=== PATIENT | female | born 1950 | race Two or more races ===

== ENCOUNTER 2020-06-06 13:03 | Inpatient (IN) | payer OTHER, MEDICAID ==
[~2020-06-06] VITALS: Ht 160 cm; Wt 72.5 kg
[2020-06-06] MEDS ORDERED: SODIUM CHLORIDE 0.9% 500 ML IVB ONE (13:30)
[2020-06-06 14:39] LABS: Basophils # (auto) 0 10 ^3/uL (0-0.2); Basophils % (auto) 0.6 % (0.0-2.0); Eosinophils # (auto) 0.1 10 ^3/uL (0-0.8); Eosinophils % (auto) 2.2 % (0.0-7.0); Hematocrit 39.9 % (36.0-46.0); Hemoglobin 13.2 g/dL (12.2-16.2); Lymphocytes # (auto) 0.9 10 ^3/uL (0.4-5.4); Lymphocytes % (auto) 20.7 % (10.0-50.0); Mean Corpuscular Hemoglobin 31.2 pg (28.0-32.0); Mean Corpuscular Hgb Conc. 33.1 g/dL (32.0-36.0); Monocytes # (auto) 0.3 10 ^3/uL (0-1.3); Neutrophils % (auto) 69.5 % (37.0-80.0); Nucleated Red Blood Cells % 0.1 %; Platelet Count (auto) 147 10^3/uL (140-450); Red Blood Cells 4.25 10^6/uL (4.0-5.20); White Blood Cell 4.4 10^3/uL (4.4-10.8)
[2020-06-06 15:03] LABS: Alanine Aminotransferase 21 U/L (13-56); Albumin 3.3 g/dL (3.4-5.0); Anion Gap 6 (5-15); Aspartate Aminotransferase 11 U/L (15-37); BUN/Creatinine Ratio 13.9; Blood Urea Nitrogen 16 mg/dL (7-18); Calcium 9.6 mg/dL (8.5-10.1); Carbon Dioxide 24 mmol/L (21-32); Chloride 109 mmol/L (98-107); GFR African American 60 mL/min; GFR Non-African American 50 mL/min; Glucose 86 mg/dL (74-106); Magnesium 2.3 mg/dL (1.6-2.6); Potassium 3.9 mmol/L (3.5-5.1); Sodium 139 mmol/L (136-145)
[2020-06-06 15:08] LABS: Alkaline Phosphatase 56 U/L (45-117); Bilirubin, Total 0.6 mg/dL (0.2-1.0); Total Protein 7.1 g/dL (6.4-8.2)
[2020-06-06 15:20] LABS: Urine Bacteria NONE SEEN /hpf (None Seen); Urine Blood Negative /uL (Negative); Urine Hyaline Cast FEW /lpf (0 - 2); Urine Mucus FEW (None Seen); Urine Specific Gravity 1.025 (1.001-1.035); Urine WBC 1 /hpf (0 - 5)
[2020-06-06 15:28] LABS: Alcohol, Urine < 3.0 mg/dL (0-10); Amphetamine Screen, Urine NEGATIVE (NEGATIVE); Barbiturate Scree,Urine NEGATIVE (NEGATIVE); Benzodiazephine Screen, Urine NEGATIVE (NEGATIVE); Cannabinoid Screen, Urine NEGATIVE (NEGATIVE); Cocaine Screen, Urine NEGATIVE (NEGATIVE); Opiate Scree,Urine NEGATIVE (NEGATIVE); Phencyclidine Screen, Urine NEGATIVE (NEGATIVE)
[2020-06-06] MEDS ORDERED: DEXTROSE (50%) 50ML SYRG IV ONE (16:15)
[2020-06-06] MEDS ORDERED: SODIUM CHLORIDE 0.9% 1,000 ML IV ONE (19:00)
[2020-06-06] MEDS ORDERED: ACETAMINOPHEN 500 MG TAB PO PRN (19:30)
[2020-06-06] MEDS ORDERED: TEMAZEPAM 15 MG CAP PO PRN (19:30)
[2020-06-06] MEDS ORDERED: traMADol HCL 50 MG TAB PO PRN (19:30)
[2020-06-06] MEDS ORDERED: MORPHINE SULF INJ 2 MG/ML SYRINGE 1ML IV PRN (19:30)
[2020-06-06] MEDS ORDERED: LACTULOSE 20Gm/30ML SOLN PO PRN (19:30)
[2020-06-06] MEDS ORDERED: ONDANSETRON HCL 4 MG/2 ML VIAL IV PRN (19:30)
[2020-06-06] MEDS ORDERED: NITROGLYCERIN 0.4 MG SL TAB SL PRN (19:30)
[2020-06-06] MEDS: SODIUM CHLORIDE 0.9% 1,000 ML IV SCH (20:30)
[2020-06-06 21:26] LABS: CRP High Sensitivity 0.06 mg/dL (< 0.3)
[2020-06-06] MEDS: FAMOTIDINE 20 MG TAB PO SCH (22:04)
[2020-06-06] MEDS: LABETALOL HCL 5 MG/ML ML 20ML VIAL IV PRN (23:25)
[2020-06-06] MEDS ORDERED: LORazepam 2MG/ML-1ML VIAL IV PRN (23:30)
[2020-06-06 23:54] LABS: Cholesterol 148 mg/dL (< 200); HDL Cholesterol 62 mg/dL (40-59); LDL Cholesterol 77 mg/dL (< 100); Triglycerides 106 mg/dL (< 150)
[2020-06-07] MEDS: LABETALOL HCL 5 MG/ML ML 20ML VIAL IV PRN (01:30)
[2020-06-07 04:50] VITALS: BP 152/88
--- NOTE | 2020-06-07 04:50 | NUR ---
Unable to Complete Admission Assessment This RN is resource nurse jose and is unable to complete admission assessment at this time due to patient being alert and oriented to self. Information obtained was from medical record. Will attempt to call daughter later today.
--- NOTE | 2020-06-07 05:54 | NUR ---
PATIENTS CONDITION NOTED BY THE ADMITTING RESOURCE RN. PATIENT RESPONDS TO VERBAL STIMULI AND LIGHT PAIN. SPEECH IS INCOMPREHENSIBLE. HER SKIN IS INTACT. SHE IS AFEBRILE. ABDOMEN APPEARS DISTENDED AND FIRM BUT THERE ARE BOWEL SOUNDS. THE FAMILY IS EXPECTED TO CALL BACK FOR MORE INFORMATION.
--- NOTE | 2020-06-07 06:30 | NUR ---
Spoke with Daughter Called and spoke with Daughter Yany. Yany was able to assist in answering some of the admission questions.
[2020-06-07] MEDS ORDERED: SUMA25TA2 PO (06:33)
[2020-06-07] MEDS ORDERED: SIMV10TA84 PO (06:33)
--- NOTE | 2020-06-07 06:49 | NUR ---
PATIENT WAS COVID19 NEGATIVE AND REVERTS TO UNIVERSAL ISOLATION.
--- NOTE | 2020-06-07 06:50 | NUR ---
Home Medications Collected Home medications collected and sent to pharmacy. Copy in hardchart. POM wristband on patient.
[2020-06-07] MEDS: SODIUM CHLORIDE 0.9% 1,000 ML IV SCH ×2 (08:30→20:23)
[2020-06-07 09:00] VITALS: BP 156/91
[2020-06-07] MEDS ORDERED: CHOLECALCIFEROL (VITD3) 1,000UNIT=25mCg TAB PO SCH (10:00)
[2020-06-07] MEDS ORDERED: ZINC SULFATE 220mg CAP or TAB PO SCH (10:00)
[2020-06-07] MEDS ORDERED: ASCORBIC ACID 1,000 MG TAB PO SCH (10:00)
[2020-06-07] MEDS: FAMOTIDINE 20 MG TAB PO SCH ×2 (10:51→21:33)
[2020-06-07] MEDS: ENOXAPARIN SOD 40 MG/0.4 ML SYRINGE SC SCH (10:52)
[2020-06-07] MEDS: ASPirin 81 mg TAB PO SCH (10:52)
[2020-06-07 13:00] VITALS: BP 143/78
--- NOTE | 2020-06-07 13:35 | NUR ---
SWALLOW EVALUATED. PATIENT ALOC BUT ABLE TO FOLLOW DIRECTIONS. PATIENT HAS NATURAL TEETH. ABLE TO TOLERATE PUREE DIET TEXTURE WITH THIN LIQUIDS WITH NO OVERT SIGNS OR SYMPTOMS OF ASPIRATION. PATIENT HAD DIFFICULTY WITH SMALL TRIAL OF MECH SOFT. NURSING NOTIFIED.
--- NOTE | 2020-06-07 15:52 | NUR ---
PT VERY TIRED AND DOES NOT ANSWER QUESTIONS OR RESPOND TO COMMANDS. ATTEMPT P.T. TOMORROW.
--- NOTE | 2020-06-07 16:50 | NUR ---
EEG- Electroencephalogram completed on 06/07/2020.
[2020-06-07 17:30] VITALS: BP 140/72
--- NOTE | 2020-06-07 18:43 | NUR ---
CONSENT CONSENT SIGNED VIA TELEPHONE CONSENT WITH PATIENTS DAUGHTER AMY MCKEON. CARMELO Maciel AND CARMELO Caba WITNESS.
[2020-06-07] MEDS ORDERED: IOHEXOL 350 MG/ML 100ML IJ ONE (18:57)
--- NOTE | 2020-06-07 19:00 | NUR ---
Patient taken down to radiology.
--- NOTE | 2020-06-07 19:40 | NUR ---
Opening Shift Note Assumed care of patient, eyes open to voice. Patient able to follow simple commands. No S/S of distress/SOB. Fall, aspiration, and safety precautions in place. Call light within reach. Ignacio in place draining to gravity with no obstructions/kinks and bag is hung below waist. Instructed on POC and to call for assist PRN, patient unable to verbalize understanding, will continue reinforcement. Will continue to monitor for changes Q1hr and PRN.
--- NOTE | 2020-06-07 19:43 | NUR ---
RETURN TO UNIT PATIENT RETURNS TO UNIT VIA BED SAFELY WITH NO ACUTE S/S OF DISTRESS/HARM. WILL CONTINUE TO MONITOR.
[2020-06-07] MEDS: ATORVASTATIN 20 MG TAB PO SCH (21:33)
[2020-06-07 22:00] VITALS: BP 146/89
[2020-06-08 05:00] VITALS: BP 120/73
--- NOTE | 2020-06-08 05:10 | NUR ---
O2 SATURATION O2 RECHECKED AT THIS TIME. PATIENT'S SATURATION IS 96% ON ROOM AIR. WILL CONTINUE TO MONITOR.
[2020-06-08 08:41] VITALS: BP 128/74
[2020-06-08] MEDS: FAMOTIDINE 20 MG TAB PO SCH ×3 (10:00→21:02)
[2020-06-08] MEDS: ASPirin 81 mg TAB PO SCH ×2 (10:00→10:12)
[2020-06-08] MEDS: ENOXAPARIN SOD 40 MG/0.4 ML SYRINGE SC SCH (10:11)
[2020-06-08] MEDS: SODIUM CHLORIDE 0.9% 1,000 ML IV SCH ×2 (10:13→21:23)
--- NOTE | 2020-06-08 11:10 | NUR ---
DOCTOR ALMANZA ON PHONE WITH PATIENTS FAMILY DISCUSSING POC.
[2020-06-08] MEDS ORDERED: ACETAMINOPHEN 650 mg PER 20 mL UD PO PRN (11:15)
[2020-06-08 12:46] VITALS: BP 138/76
--- NOTE | 2020-06-08 14:15 | NUR ---
PT at bedside ambulating patient.
[2020-06-08 17:09] VITALS: BP 137/76
--- NOTE | 2020-06-08 17:27 | NUR ---
PATIENTS DAUGHTER AMY SIGNED CONSENTS FOR TRANSESOPHAGEAL ECHOCARDIOGRAM DOWN IN FRONT LOBBY.
[2020-06-08] MEDS: ATORVASTATIN 20 MG TAB PO SCH (21:02)
[2020-06-08 22:00] VITALS: BP 122/62
[2020-06-09 05:00] VITALS: BP 131/66
--- NOTE | 2020-06-09 07:40 | NUR ---
Opening Note Received report from maintenance technician 3rd shift RN. Patient is resting in bed, no signs or symptoms of distress noted at this time. Patient is on room air, respirations even and unlabored. Patient is NPO for scheduled procedure. Bed in low and locked position, call light within reach. Will continue to monitor Q1 hour and PRN.
[2020-06-09 07:56] LABS: INR 1.04 (0.9-1.15); Partial Thromboplastin Time 26.8 sec (23.64-32.05)
[2020-06-09 09:00] VITALS: BP 141/67
[2020-06-09] MEDS: ASPirin 81 mg TAB PO SCH (10:00)
[2020-06-09] MEDS: ENOXAPARIN SOD 40 MG/0.4 ML SYRINGE SC SCH (10:00)
[2020-06-09] MEDS: FAMOTIDINE 20 MG TAB PO SCH ×2 (10:00→22:30)
--- NOTE | 2020-06-09 11:10 | NUR ---
Physical therapy at bedside patient ambulated to hallway and and back to bed.
[2020-06-09] MEDS: SODIUM CHLORIDE 0.9% 1,000 ML IV SCH ×2 (11:21→22:31)
--- NOTE | 2020-06-09 11:36 | NUR ---
Patient taken down to laboratory analyst
[2020-06-09] MEDS ORDERED: LIDOCAINE VISCOUS 2% 15ML UD MT ONE (11:45)
[2020-06-09] MEDS ORDERED: MIDAZOLAM HCL 1MG/1ML-2 ML VIAL IV ONE (11:45)
[2020-06-09] MEDS ORDERED: fentaNYL CITRATE 100 MCG/2 ML VL IV ONE (11:45)
[2020-06-09 13:00] VITALS: BP 148/76
--- NOTE | 2020-06-09 13:35 | NUR ---
Patient back to room Patient is s/p FEDE. Per report, no interventions were done and patient did not receive sedation medications. Patient is awake, no signs or symptoms of distress noted at this time. Patient is on 2L NC respirations even and unlabored. Bed alarm on for safety. Bed in low and locked position, call light within reach. Will continue to monitor Q1 hour and PRN.
--- NOTE | 2020-06-09 15:31 | NUR ---
assessment Patient is a 69 year old female. Per patients daughter Yany prior to admission patient lived home with her and family and was independent. Patient has no need for DME. Patients PCP is Dr Whaley. Per Yany patient was not responding to her so she called 911. Patient has had a stroke. Patient will need assistance on discharge. Per Yany she and other family members will be with patient 13/06 to help with all her needs. Patient will need home health for PT, a fww, and a shower chair prior to discharge. Per Yany she will be transporting patient home on discharge. I will continue to monitor and follow up as appropriate. Yany verbalized understanding and ageed to discharge plan home. Addendum: 06/09/20 at 1535 by Emily FULTON Amended: Links added.
--- NOTE | 2020-06-09 16:53 | NUR ---
I faxed home health, walker, shower chair order to [facility].
[2020-06-09 16:54] VITALS: BP 135/78
--- NOTE | 2020-06-09 19:05 | NUR ---
Closing Note Report given to security shift supervisor RN. No signs or symptoms of distress noted at this time.
--- NOTE | 2020-06-09 19:06 | NUR ---
Opening Shift Note Assumed care of patient, awake and alert. No S/S of distress/SOB or pain. Instructed on POC and to call for assist PRN, will continue to monitor for changes Q1hr and PRN.
[2020-06-09 22:00] VITALS: BP 143/73
[2020-06-09] MEDS: ATORVASTATIN 20 MG TAB PO SCH (22:30)
[2020-06-10 05:00] VITALS: BP 116/69
--- NOTE | 2020-06-10 07:25 | NUR ---
Opening Note Received report from operations leader RN. Patient is resting in bed, no signs or symptoms of distress noted at this time. Patient is on room air, respirations even and unlabored. Bed in low and locked position, call light within reach. Will continue to monitor Q1 hour and PRN.
[2020-06-10 08:47] VITALS: BP 127/75
--- NOTE | 2020-06-10 08:55 | NUR ---
Dr. Mcclendon at bedside Discussing plan of care with patient and this RN. Patient to discharge home later today. Will continue to monitor Q1 hour and PRN.
[2020-06-10] MEDS: FAMOTIDINE 20 MG TAB PO SCH (10:20)
[2020-06-10] MEDS: ASPirin 81 mg TAB PO SCH (10:20)
[2020-06-10] MEDS: ENOXAPARIN SOD 40 MG/0.4 ML SYRINGE SC SCH (10:21)
[2020-06-10 10:48] VITALS: BP 145/83
[2020-06-10 12:45] VITALS: BP 130/78
--- NOTE | 2020-06-10 14:47 | NUR ---
D/C Planning Regarding social service consult for physical therapy, Occupational therapy, and speech therapy. Fax[facility] clinical [facility]. Per NAOMI Henley with [facility], [facility] ) can service patient within 24-48hrs upon d/c day.
[2020-06-10 16:53] VITALS: BP 121/78
--- NOTE | 2020-06-10 17:46 | NUR ---
Discharge Discharge instructions given as ordered to patients daughter Leanne. Encourage to follow up with PMD as instructed. All questions and concerns addressed. Family verbalized understanding. Medication reconciliation form completed and copy given to patient. Home medications held in Pharmacy returned to patient. IV removed with catheter intact, pressure dressing applied, Ignacio catheter removed. Telemetry unit returned to ICU. Patient taken to vehicle via wheelchair with all personal belongings, accompanied by staff members. No signs or symptoms of distress noted at this time.
== END 2020-06-10 17:45 | disposition home or self-care (01) | DRG 64 ==
LOC: ER 13:03 → TELE 13:04 → TELE-WESTW 06-07 04:50
PROVIDERS: ADMIT Internal Medicine; ATTEND Internal Medicine Geriatric Medicine
PROC: B246ZZ4 Ultrasonography of Right and Left Heart, Transesophageal (ICD-10-PCS; principal; 2020-06-09)
DX: I63.9 Cerebral infarction, unspecified (principal); G93.41 Metabolic encephalopathy; Q21.1 Atrial septal defect; E78.5 Hyperlipidemia, unspecified; R47.01 Aphasia; F17.210 Nicotine dependence, cigarettes, uncomplicated; F41.9 Anxiety disorder, unspecified; Z20.828 Contact with and (suspected) exposure to other viral communicable diseases; G43.109 Migraine with aura, not intractable, without status migrainosus; I10 Essential (primary) hypertension; Z86.73 Personal history of transient ischemic attack (TIA), and cerebral infarction without residual deficits; Z79.82 Long term (current) use of aspirin; Z79.899 Other long term (current) drug therapy; Z82.3 Family history of stroke; Z82.49 Family history of ischemic heart disease and other diseases of the circulatory system; Z83.3 Family history of diabetes mellitus
CPT/HCPCS: 36415; 70450; 70496; 70498; 70551; 71045; 80053; 80061; 80307; 80320; 81001; 82550; 82728; 82962; 83605; 83615; 83735; 84443; 84484; 85025; 85379; 85610; 85652; 85730; 86141; 86850; 86900; 86901; 87040; 92610; 93005; 93306; 93312; 93886; 95819; 97110; 97116; 97163; 97530; 99152; G0378; J2250

== ENCOUNTER 2020-06-24 15:20 | Inpatient (IN) | payer OTHER, MEDICAID ==
[~2020-06-24] VITALS: Ht 165.1 cm; Wt 72.0 kg
[~2020-06-24 15:20] MED LIST: SIMV10TA84 PO; SUMA25TA2 PO
[2020-06-24] MEDS ORDERED: SODIUM CHLORIDE 0.9% 500 ML IVB ONE (15:54)
[2020-06-24] MEDS ORDERED: PANTOPRAZOLE 40 MG/10 ML VIAL INJ IV STA (15:54)
[2020-06-24] MEDS ORDERED: MORPHINE SULFATE 4 MG/ML SYR/VIAL IV ONE ×2 (16:00→21:15)
[2020-06-24] MEDS ORDERED: ONDANSETRON HCL 4 MG/2 ML VIAL IV ONE (16:00)
[2020-06-24 16:23] LABS: Basophils # (auto) 0 10 ^3/uL (0-0.2); Basophils % (auto) 0.3 % (0.0-2.0); Eosinophils # (auto) 0 10 ^3/uL (0-0.8); Eosinophils % (auto) 0.2 % (0.0-7.0); Hematocrit 40.7 % (36.0-46.0); Hemoglobin 13.6 g/dL (12.2-16.2); Lymphocytes # (auto) 0.7 10 ^3/uL (0.4-5.4); Lymphocytes % (auto) 12.3 % (10.0-50.0); Mean Corpuscular Hemoglobin 30.7 pg (28.0-32.0); Mean Corpuscular Hgb Conc. 33.4 g/dL (32.0-36.0); Mean Corpuscular Volume 91.9 fL (80.0-100.0); Monocytes # (auto) 0.4 10 ^3/uL (0-1.3); Monocytes % (auto) 6.4 % (0.0-12.0); Neutrophils # (auto) 4.6 10 ^3/uL (1.6-8.6); Neutrophils % (auto) 80.8 % (37.0-80.0); Platelet Count (auto) 211 10^3/uL (140-450); Red Blood Cells 4.43 10^6/uL (4.0-5.20); Red Cell Distribution Width 12.7 % (11.8-14.3); White Blood Cell 5.7 10^3/uL (4.4-10.8)
[2020-06-24 16:46] LABS: Albumin 3.4 g/dL (3.4-5.0); Calcium 10.3 mg/dL (8.5-10.1); Potassium 3.7 mmol/L (3.5-5.1)
[2020-06-24 16:48] LABS: BUN/Creatinine Ratio 14.3
[2020-06-24 16:50] LABS: Total Protein 7.6 g/dL (6.4-8.2)
[2020-06-24] MEDS ORDERED: MORPHINE SULF INJ 2 MG/ML SYRINGE 1ML IV PRN (21:30)
[2020-06-24] MEDS ORDERED: ONDANSETRON HCL 4 MG/2 ML VIAL IV PRN (21:30)
[2020-06-24] MEDS ORDERED: NITROGLYCERIN 0.4 MG SL TAB SL PRN (21:30)
[2020-06-25] MEDS: hydrALAZINE HCL 20 MG/ML VL IV SCH ×3 (00:24→12:00)
[2020-06-25 01:45] VITALS: BP 148/72
[2020-06-25] MEDS ORDERED: MORPHINE SULFATE 4 MG/ML SYR/VIAL IV PRN (02:00)
[2020-06-25] MEDS ORDERED: ASPI-543 PO (02:28)
[2020-06-25] MEDS ORDERED: TRAM50TA2 PO (02:28)
[2020-06-25] MEDS ORDERED: LOSA-69 PO (02:28)
[2020-06-25] MEDS ORDERED: ATOR20TA50 PO (02:28)
[2020-06-25] MEDS ORDERED: CHOL1000 PO (02:30)
[2020-06-25] MEDS ORDERED: HYDR25TA4 PO (02:30)
[2020-06-25] MEDS ORDERED: ESCI10TA53 PO (02:30)
--- NOTE | 2020-06-25 04:46 | NUR ---
0130 Telemetry admit from ER. FELTONLATISHA admitted to Telemetry unit after SBAR received. Patient oriented to DEBBIE TALLEY, RN primary RN, unit, room, bed, and unit policies regarding patient care and how there are currently visiting hours. Patient now on continuous telemetry monitoring, tele box #78 and telemetry reading on arrival to unit is NSR at 86. Patient placed on bedside oxygen, weighed by bedscale at and encouraged to call if they need something. All questions and concerns addressed, patient confirmed understanding. Will continue to monitor patient hourly.
[2020-06-25 05:00] VITALS: BP 150/90
[2020-06-25 06:03] LABS: Basophils # (auto) 0 10 ^3/uL (0-0.2); Basophils % (auto) 0.3 % (0.0-2.0); Eosinophils # (auto) 0 10 ^3/uL (0-0.8); Eosinophils % (auto) 0.1 % (0.0-7.0); Hematocrit 41.5 % (36.0-46.0); Hemoglobin 13.6 g/dL (12.2-16.2); Lymphocytes # (auto) 0.4 10 ^3/uL (0.4-5.4); Mean Corpuscular Hemoglobin 30.9 pg (28.0-32.0); Mean Corpuscular Hgb Conc. 32.8 g/dL (32.0-36.0); Mean Corpuscular Volume 94.1 fL (80.0-100.0); Monocytes # (auto) 0.2 10 ^3/uL (0-1.3); Monocytes % (auto) 7.5 % (0.0-12.0); Neutrophils # (auto) 2.6 10 ^3/uL (1.6-8.6); Neutrophils % (auto) 80.1 % (37.0-80.0); Platelet Count (auto) 180 10^3/uL (140-450); Red Blood Cells 4.41 10^6/uL (4.0-5.20); White Blood Cell 3.3 10^3/uL (4.4-10.8)
[2020-06-25] MEDS: SODIUM CHLORIDE 0.9% 1,000 ML IV SCH ×2 (06:05→21:39)
[2020-06-25 06:19] LABS: Calcium 9.9 mg/dL (8.5-10.1)
[2020-06-25 06:22] LABS: BUN/Creatinine Ratio 14.8
--- NOTE | 2020-06-25 08:00 | NUR ---
Opening Shift Note Assumed care of patient, awake, alert and oriented X4. No S/S of distress/SOB, complains of abdominal pain, 3/10, verbalized tolerable. Left nare NGT to LIS with 100 ml of greenish, brown drainage. Tele# 78, sinus tachycardia @ 113 bpm. IV to left forearm, 20 gauge, patent and infusing 0.9% NS @ 75 ml/hr. Instructed on POC and to call for assist PRN, verbalized understanding. Bed locked, in lowest position, call light within reach, will continue to monitor for changes Q1hr and PRN.
[2020-06-25 09:00] VITALS: BP 91/49
--- NOTE | 2020-06-25 09:05 | NUR ---
SBFT Patient taken to radiology for SBFT via bed, no distress noted upon departure.
[2020-06-25] MEDS ORDERED: GASTROGRAFIN 120 ML SOL ONE (09:10)
--- NOTE | 2020-06-25 10:30 | NUR ---
SBFT Returned from radiology via bed, no distress noted upon return.
[2020-06-25] MEDS: PANTOPRAZOLE 40 MG/10 ML VIAL INJ IV SCH (10:44)
[2020-06-25 13:00] VITALS: BP 119/54
--- NOTE | 2020-06-25 13:10 | NUR ---
OBGYN Dr Reilly at bedside for INTERNET MARKETER consult, new orders received and followed through. Patient updated on plan of care, verbalized understanding.
--- NOTE | 2020-06-25 13:24 | NUR ---
ONCOLOGY Dr Martinez at bedside for Oncology consult. New orders received and followed through. Patient updated on plan of care, verbalize understanding.
--- NOTE | 2020-06-25 13:59 | NUR ---
ROUNDS Dr Mcclendon at bedside for rounds, new orders received and followed thorough. Patient updated on plan of care, verbalized understanding.
--- NOTE | 2020-06-25 14:42 | NUR ---
I faxed transfer order and today's MD progress notes to [facility].
--- NOTE | 2020-06-25 14:59 | NUR ---
I called [facility] and spoke with Leslie ([phone]) regarding the transfer to higher level of care order-she said Kim is working on the transfer and will call me later with an update.
--- NOTE | 2020-06-25 15:30 | NUR ---
SBFT Small Bowel Follow Through completed. Left nare NGT hooked back up to LIS.
--- NOTE | 2020-06-25 16:29 | NUR ---
I spoke with nurse Chely and updated her on the status of the transfer-[facility] phone number [phone].
[2020-06-25 17:00] VITALS: BP 111/62
--- NOTE | 2020-06-25 19:08 | NUR ---
Care endorsed to CARMELO Verma, night nurse.
--- NOTE | 2020-06-25 20:00 | NUR ---
Opening Shift Note Assumed care of patient, awake, alert and oriented X4, follows direction. Patient on room air with even and unlabored respirations, No S/S of distress/SOB. Patient turns independently in bed. Left nare NGT to LIS with 100 ml of greenish, brown drainage. Bed in lowest locked position with side rails up x 2 and call light within reach. Instructed on POC and to call for assist PRN, verbalized understanding. Bed locked, in lowest position, call light within reach, will continue to monitor for changes Q1hr and PRN.
[2020-06-25 22:00] VITALS: BP 142/75
[2020-06-26 05:00] VITALS: BP 127/67
--- NOTE | 2020-06-26 07:05 | NUR ---
Closing Note status unchanged. patient sleeping in bed, on room air with even and unlabored respirations, noted chest rise and fall. no s/s of distress or SOB. IVF infusing per orders. NGT to LIS, 50mL brown drainage output for shift. Bed in lowest locked position with side rails up x 2 and call light within reach, bed alarm on.
[2020-06-26 07:15] LABS: Basophils # (auto) 0 10 ^3/uL (0-0.2); Basophils % (auto) 0.6 % (0.0-2.0); Eosinophils # (auto) 0 10 ^3/uL (0-0.8); Eosinophils % (auto) 1.3 % (0.0-7.0); Hematocrit 34.7 % (36.0-46.0); Hemoglobin 11.6 g/dL (12.2-16.2); Lymphocytes # (auto) 0.7 10 ^3/uL (0.4-5.4); Lymphocytes % (auto) 18.8 % (10.0-50.0); Mean Corpuscular Hemoglobin 31.3 pg (28.0-32.0); Mean Corpuscular Hgb Conc. 33.4 g/dL (32.0-36.0); Mean Corpuscular Volume 93.5 fL (80.0-100.0); Monocytes # (auto) 0.3 10 ^3/uL (0-1.3); Monocytes % (auto) 9.7 % (0.0-12.0); Neutrophils # (auto) 2.5 10 ^3/uL (1.6-8.6); Neutrophils % (auto) 69.6 % (37.0-80.0); Nucleated Red Blood Cells % 0.1 %; Platelet Count (auto) 165 10^3/uL (140-450); Red Blood Cells 3.72 10^6/uL (4.0-5.20); Red Cell Distribution Width 13.1 % (11.8-14.3); White Blood Cell 3.5 10^3/uL (4.4-10.8)
[2020-06-26 07:32] LABS: BUN/Creatinine Ratio 21.9; Calcium 9.6 mg/dL (8.5-10.1); Magnesium 2.4 mg/dL (1.6-2.6); Potassium 3.3 mmol/L (3.5-5.1)
--- NOTE | 2020-06-26 08:00 | NUR ---
Opening Shift Note Assumed care of patient, awake, alert and oriented X4. No S/S of distress/SOB, complains of anterior headache, 8/, will medicate with prescribed pain medication. Left nare NGT to LIS with 150 ml of brown drainage. Tele# 78, sinus rhythm @ 81 bpm. IV to left forearm, 20 gauge, patent and infusing 0.9% NS @ 75 ml/hr. Instructed on POC and to call for assist PRN, verbalized understanding. Bed locked, in lowest position, call light within reach, will continue to monitor for changes Q1hr and PRN.
[2020-06-26 09:00] VITALS: BP 144/93
[2020-06-26] MEDS ORDERED: POTASSIUM CHL 20MEQ/100ML 100 ML IV ONE (09:45)
--- NOTE | 2020-06-26 09:45 | NUR ---
ROUNDS Dr Mcclendon at bedside for rounds, new orders received and followed through. Patient updated on plan of care, nodded head in understanding.
--- NOTE | 2020-06-26 10:15 | NUR ---
IV removal IV DC'd to left forerm due to swelling with sterile technique, catheter fully intact. Pressure dressing applied to site. Patient tolerated procedure well. Discharged with aftercare instructions per MD. IV insertion IV access obtained to right forerm, via clean sterile technique by inserting 22 gauge catheter at right forearm after 1 attempt.IV secured properly. No trauma to site. Patient tolerated procedure well.
--- NOTE | 2020-06-26 10:34 | NUR ---
I called [facility] [phone] and spoke with Merchandising Specialist Kim-asked for an update on the status of the transfer. Per Kim he medical biller coder told her to reach out to their contracted facility-[facility]-she is reaching out to them and will call me back regarding bed availability. Per Kim, her medical biller coder is not authorizing [place] or [facility] at this time.
[2020-06-26] MEDS: KETOROLAC TROMETH 30 MG/ML 1ML VIAL IV PRN (11:30)
--- NOTE | 2020-06-26 11:40 | NUR ---
ROUNDS Dr Mcclendon at bedside for rounds, new orders received and followed through. Patient updated on plan of care, verbalized understanding.
[2020-06-26] MEDS: SODIUM CHLORIDE 0.9% 1,000 ML IV SCH (11:45)
[2020-06-26] MEDS: PANTOPRAZOLE 40 MG/10 ML VIAL INJ IV SCH (11:51)
[2020-06-26 13:00] VITALS: BP 138/76
--- NOTE | 2020-06-26 14:50 | NUR ---
I received a call from [facility] Manager Support Kim-she said [facility] has no beds available. Per Kim she is reaching out to [facility]-she will give me a call back later with an update.
--- NOTE | 2020-06-26 15:16 | NUR ---
[facility] Call received from Shama from [facility]. Requested information provided. Per Shama, they require a negative COVID test result within 5 days of transfer. Per Shama, they do not have a bed at this time. Call placed to Dr Mcclendon for COVID order, awaiting return call.
--- NOTE | 2020-06-26 17:00 | NUR ---
COVID SAMPLE Covid sample obtained and sent to lab.
[2020-06-26 18:04] VITALS: BP 128/70
--- NOTE | 2020-06-26 19:17 | NUR ---
Care endorsed to CARMELO Merrill, night nurse.
--- NOTE | 2020-06-26 19:50 | NUR ---
Opening Shift Note Assumed care of patient, awake, AAOx4. No S/S of distress/SOB or pain. On room air and bedrest. NGT to left nare on LIS. Patient NPO. Bed in lowest locked position, side rails up x2, call light within reach. Instructed on POC and to call for assist PRN, will continue to monitor for changes Q1hr and PRN.
[2020-06-26] MEDS: D5W/SOD CHL 0.45%/KCL 20MEQ 1,000 ML IV SCH (21:00)
[2020-06-26 22:00] VITALS: BP 133/76
[2020-06-27 05:00] VITALS: BP 155/91
[2020-06-27 05:53] VITALS: BP 155/91
[2020-06-27 06:23] LABS: Basophils # (auto) 0 10 ^3/uL (0-0.2); Basophils % (auto) 0.5 % (0.0-2.0); Eosinophils # (auto) 0.1 10 ^3/uL (0-0.8); Eosinophils % (auto) 2.1 % (0.0-7.0); Hematocrit 36.9 % (36.0-46.0); Lymphocytes # (auto) 0.9 10 ^3/uL (0.4-5.4); Mean Corpuscular Hemoglobin 31.1 pg (28.0-32.0); Mean Corpuscular Hgb Conc. 32.5 g/dL (32.0-36.0); Mean Corpuscular Volume 95.6 fL (80.0-100.0); Monocytes # (auto) 0.4 10 ^3/uL (0-1.3); Monocytes % (auto) 9.8 % (0.0-12.0); Neutrophils # (auto) 2.6 10 ^3/uL (1.6-8.6); Neutrophils % (auto) 64.6 % (37.0-80.0); Nucleated Red Blood Cells % 0.3 %; Platelet Count (auto) 153 10^3/uL (140-450); Red Blood Cells 3.86 10^6/uL (4.0-5.20); Red Cell Distribution Width 13.2 % (11.8-14.3); White Blood Cell 4.1 10^3/uL (4.4-10.8)
[2020-06-27 06:31] LABS: BUN/Creatinine Ratio 23.6; Calcium 9.4 mg/dL (8.5-10.1); Magnesium 2.5 mg/dL (1.6-2.6); Potassium 3.3 mmol/L (3.5-5.1)
[2020-06-27 09:00] VITALS: BP 129/70
[2020-06-27] MEDS: PANTOPRAZOLE 40 MG/10 ML VIAL INJ IV SCH (10:07)
[2020-06-27] MEDS: D5W/SOD CHL 0.45%/KCL 20MEQ 1,000 ML IV SCH (10:08)
--- NOTE | 2020-06-27 10:14 | NUR ---
1015 06/27/20 I spoke with [facility] Seymour Alvarez and requested an update on the status of the transfer to higher level of care. Per Kim she will check bed availability at [facility] and give me a call back. I requested that authorization be provided for patient's admission and continued stay. Per Kim, inpatient authorization is approved with number [id number].
[2020-06-27] MEDS ORDERED: POTASSIUM CHL 20MEQ/100ML 100 ML IV ONE (12:00)
[2020-06-27] MEDS: KETOROLAC TROMETH 30 MG/ML 1ML VIAL IV PRN (12:56)
[2020-06-27 13:00] VITALS: BP 151/71
--- NOTE | 2020-06-27 16:01 | NUR ---
Patient will be going to [facility] [address] room 4 bed 2, nurse to call report to [phone]. I spoke with Meena at [facility] ([phone])regarding transportation-she will arrange [facility] to come at 1999-I relayed this information to nurse Marie.
--- NOTE | 2020-06-27 16:10 | NUR ---
Accepting MD at [facility] is Dr. Hinson.
--- NOTE | 2020-06-27 16:25 | NUR ---
REPORT GIVEN TO RAY MOSELEY.
[2020-06-27 17:16] VITALS: BP 141/77
--- NOTE | 2020-06-27 19:10 | NUR ---
CARE ENDORSED TO LUPE FLORENTINO. PATIENT TO BE TRANSFERRED TO [facility] MARINE UNDERWRITER 1999. ENDORSED TELE BOX REMOVAL TO NOC CARMELO FLORENTINO.
--- NOTE | 2020-06-27 20:24 | NUR ---
2019PATIENT HAS BEEN DISCHARGED. SHE WAS PICKED UP BY EMR TO [facility] AT 2020. HER TELEMETRY WAS DCD AND TELE BOX AND LEAD WIRES RETURNED TO ICU VIA TUBE SYSTEM. HER NGT WAS LEFT IN SITU. HER IV WAS DISCONTINUED. SHE WAS ALERT AND ORIENTED AND COMFORTABLE BEFORE HER TRIP COMMENCED.
--- NOTE | 2020-06-27 20:28 | NUR ---
HER VITAL SIGNS WERE: BP 146/69, HR 54, O2 SAT 96% ON RA, TEMP. 97.4, RR 18.
== END 2020-06-27 20:21 | disposition short-term general hospital (02) | DRG 389 ==
LOC: ER 15:20 → TELE 15:21 → TELE-WESTW 23:32
PROVIDERS: ADMIT Nurse Practitioner; ATTEND Internal Medicine Geriatric Medicine
DX: K56.600 Partial intestinal obstruction, unspecified as to cause (principal); I69.354 Hemiplegia and hemiparesis following cerebral infarction affecting left non-dominant side; N83.9 Noninflammatory disorder of ovary, fallopian tube and broad ligament, unspecified; D49.59 Neoplasm of unspecified behavior of other genitourinary organ; I10 Essential (primary) hypertension; E78.5 Hyperlipidemia, unspecified; G43.909 Migraine, unspecified, not intractable, without status migrainosus; K40.20 Bilateral inguinal hernia, without obstruction or gangrene, not specified as recurrent; E27.8 Other specified disorders of adrenal gland; K80.20 Calculus of gallbladder without cholecystitis without obstruction; Z87.891 Personal history of nicotine dependence; Z90.710 Acquired absence of both cervix and uterus; Z82.49 Family history of ischemic heart disease and other diseases of the circulatory system; I69.320 Aphasia following cerebral infarction; I69.322 Dysarthria following cerebral infarction; Z11.59 Encounter for screening for other viral diseases; R19.00 Intra-abdominal and pelvic swelling, mass and lump, unspecified site
CPT/HCPCS: 36415; 71045; 74176; 74250; 76705; 80048; 80053; 83690; 83735; 85025; 86304; 93005; 96361; 96374; 96375; 96376; C9113; G0378; J1885; J2405; J3480

== ENCOUNTER → 2023-06-08 | Outpatient (CLI) | payer MEDICARE, MEDICAID ==
[~2023-06-08] MED LIST changes: +ASPI-543 PO; +ATOR20TA50 PO; +CHOL1TAB30 PO; +ESCI1TAB36 PO; +HYDR25TA4 PO; +LOSA50TA46 PO; -SIMV10TA84 PO; +TRAM50TA2 PO
== END | disposition home or self-care (01) ==
LOC: LAB 07:12
PROVIDERS: ATTEND Family Medicine
DX: Z12.11 Encounter for screening for malignant neoplasm of colon (principal)
CPT/HCPCS: 82270

== ENCOUNTER → 2023-10-24 | Outpatient (CLI) | payer OTHER, MEDICAID ==
[2023-10-24 11:44] LABS: Basophils # (auto) 0 10 ^3/uL (0-0.2); Basophils % (auto) 0.5 % (0.0-2.0); Eosinophils # (auto) 0.2 10 ^3/uL (0-0.8); Eosinophils % (auto) 4.8 % (0.0-7.0); Hematocrit 40.2 % (36.0-46.0); Hemoglobin 13.2 g/dL (12.2-16.2); Lymphocytes # (auto) 1.1 10 ^3/uL (0.4-5.4); Lymphocytes % (auto) 29.3 % (10.0-50.0); Mean Corpuscular Hemoglobin 29.6 pg (28.0-32.0); Mean Corpuscular Hgb Conc. 32.8 g/dL (32.0-36.0); Mean Corpuscular Volume 90.2 fL (80.0-100.0); Monocytes # (auto) 0.3 10 ^3/uL (0-1.3); Monocytes % (auto) 7.8 % (0.0-12.0); Neutrophils # (auto) 2.2 10 ^3/uL (1.6-8.6); Neutrophils % (auto) 57.6 % (37.0-80.0); Nucleated Red Blood Cells % 0.2 %; Red Blood Cells 4.46 10^6/uL (4.0-5.20); Red Cell Distribution Width 13.8 % (11.8-14.3); White Blood Cell 3.8 10^3/uL (4.4-10.8)
[2023-10-24 11:53] LABS: Urine Bacteria NONE SEEN /hpf (None Seen); Urine Blood Negative /uL (Negative); Urine Clarity Clear (Clear); Urine Color Yellow (Yellow); Urine Mucus FEW (None Seen); Urine Protein, UAD Negative (Negative); Urine Specific Gravity 1.018 (1.001-1.035); Urine Urobilinogen Normal (Negative); Urine WBC <1 /hpf (0 - 5)
[2023-10-24 12:03] LABS: Alanine Aminotransferase 15 U/L (7-40); Alkaline Phosphatase 88 U/L (46-116); Anion Gap 6 (5-15); Calcium 10.8 mg/dL (8.5-10.1); Carbon Dioxide 26 mmol/L (20-30); Chloride 108 mmol/L (98-107); Potassium 4.1 mmol/L (3.5-5.1); Sodium 140 mmol/L (136-145)
[2023-10-24 12:04] LABS: BUN/Creatinine Ratio 11.9 (10.0-20.0); Blood Urea Nitrogen 10 mg/dL (9-23); Glucose 95 mg/dL (74-106); Triglycerides 131 mg/dL (< 150)
[2023-10-24 12:05] LABS: Albumin 4.2 g/dL (3.2-4.8); Aspartate Aminotransferase 18 U/L (13-40); LDL Cholesterol 133 mg/dL (< 100)
[2023-10-24 12:06] LABS: Bilirubin, Total 0.8 mg/dL (0.2-1.0); Cholesterol 202 mg/dL (< 200); HDL Cholesterol 55 mg/dL (40-59); Total Protein 7.3 g/dL (5.7-8.2)
[2023-10-26 01:06] LABS: Chlamydia Trachomatis, NAA Negative (Negative); Neisseria gonorrhoeae, NAA Negative (Negative)
== END | disposition home or self-care (01) ==
LOC: LAB 10:26
PROVIDERS: ATTEND Family Medicine
DX: I10 Essential (primary) hypertension (principal); J44.9 Chronic obstructive pulmonary disease, unspecified; E55.9 Vitamin D deficiency, unspecified; E78.5 Hyperlipidemia, unspecified
CPT/HCPCS: 36415; 80053; 80061; 81001; 82306; 83036; 84443; 85025

== ENCOUNTER → 2024-10-11 | Outpatient (CLI) | payer OTHER, MEDICAID ==
[~2024-10-11] MED LIST changes: +LOSA-534 PO; -LOSA50TA46 PO
[2024-10-11 12:06] LABS: Basophils # (auto) 0 10 ^3/uL (0-0.2); Basophils % (auto) 0.8 % (0.0-2.0); Eosinophils # (auto) 0.1 10 ^3/uL (0-0.8); Eosinophils % (auto) 2.8 % (0.0-7.0); Hematocrit 41.8 % (36.0-46.0); Hemoglobin 13.8 g/dL (12.2-16.2); Lymphocytes # (auto) 1.1 10 ^3/uL (0.4-5.4); Lymphocytes % (auto) 27.4 % (10.0-50.0); Mean Corpuscular Hemoglobin 29.9 pg (28.0-32.0); Mean Corpuscular Hgb Conc. 32.9 g/dL (32.0-36.0); Mean Corpuscular Volume 90.7 fL (80.0-100.0); Monocytes # (auto) 0.3 10 ^3/uL (0-1.3); Monocytes % (auto) 6.4 % (0.0-12.0); Neutrophils # (auto) 2.5 10 ^3/uL (1.6-8.6); Neutrophils % (auto) 62.6 % (37.0-80.0); Nucleated Red Blood Cells % 0.1 %; Platelet Count (auto) 189 10^3/uL (140-450); Red Blood Cells 4.61 10^6/uL (4.0-5.20); Red Cell Distribution Width 14.1 % (11.8-14.3)
[2024-10-11 12:07] LABS: Urine Bacteria FEW /hpf (None Seen); Urine Blood Negative /uL (Negative); Urine Clarity Turbid (Clear); Urine Color Yellow (Yellow); Urine Hyaline Cast FEW /lpf (0 - 2); Urine Mucus FEW (None Seen); Urine Protein, UAD 1+ (Negative); Urine Specific Gravity 1.024 (1.001-1.035); Urine Urobilinogen Normal (Negative); Urine WBC 27 /hpf (0 - 5); Urine pH 5.5 (5.0-9.0)
[2024-10-11 12:43] LABS: Alanine Aminotransferase 13 U/L (7-40); Albumin 4.3 g/dL (3.2-4.8); Alkaline Phosphatase 114 U/L (46-116); Anion Gap 7 (5-15); Aspartate Aminotransferase 15 U/L (13-40); BUN/Creatinine Ratio 11.5 (10.0-20.0); Bilirubin, Total 0.8 mg/dL (0.2-1.0); Blood Urea Nitrogen 10 mg/dL (9-23); Calcium 11.6 mg/dL (8.7-10.4); Carbon Dioxide 25 mmol/L (20-31); Chloride 108 mmol/L (98-107); Cholesterol 229 mg/dL (< 200); Glucose 95 mg/dL (74-106); HDL Cholesterol 59 mg/dL (40-59); LDL Cholesterol 146 mg/dL (< 100); Potassium 4.5 mmol/L (3.5-5.1); Sodium 140 mmol/L (136-145); Total Protein 7.7 g/dL (5.7-8.2); Triglycerides 130 mg/dL (< 150)
[2024-10-11 13:05] LABS: Uric Acid 6.8 mg/dL (3.1-7.8)
== END | disposition home or self-care (01) ==
LOC: LAB 11:31
PROVIDERS: ATTEND Family Medicine
DX: E66.09 Other obesity due to excess calories (principal); D45 Polycythemia vera; G45.1 Carotid artery syndrome (hemispheric)
CPT/HCPCS: 36415; 80053; 80061; 81001; 83036; 84443; 84550; 85025; 86301

== ENCOUNTER → 2024-10-15 | Outpatient (CLI) | payer OTHER, MEDICAID | END | disposition home or self-care (01) | LOC: LAB 12:49 | PROVIDERS: ATTEND Family Medicine | DX: Z12.11 Encounter for screening for malignant neoplasm of colon (principal); E66.09 Other obesity due to excess calories | CPT/HCPCS: 82270 ==

== ENCOUNTER → 2024-12-11 | Outpatient (CLI) | payer OTHER, MEDICAID ==
[2024-12-11 11:09] LABS: Urine Bacteria None Seen /hpf (None Seen)
[2024-12-11 11:36] LABS: Urine Blood Negative /uL (Negative); Urine Clarity Clear (Clear); Urine Color Light-Yellow (Yellow); Urine Mucus FEW (None Seen); Urine Protein, UAD Negative (Negative); Urine Squamous Epithelial Cell FEW /hpf (<5); Urine Urobilinogen Normal (Negative); Urine WBC 2 /HPF (0-5); Urine pH 5.5 (5.0-9.0)
[2024-12-11 11:41] LABS: Basophils # (auto) 0 10 ^3/uL (0-0.2); Basophils % (auto) 0.7 % (0.0-2.0); Eosinophils # (auto) 0.2 10 ^3/uL (0-0.8); Hematocrit 41.5 % (36.0-46.0); Hemoglobin 13.7 g/dL (12.2-16.2); Lymphocytes # (auto) 1.2 10 ^3/uL (0.4-5.4); Lymphocytes % (auto) 30.1 % (10.0-50.0); Mean Corpuscular Hemoglobin 29.7 pg (28.0-32.0); Mean Corpuscular Hgb Conc. 33.1 g/dL (32.0-36.0); Mean Corpuscular Volume 89.9 fL (80.0-100.0); Monocytes # (auto) 0.3 10 ^3/uL (0-1.3); Monocytes % (auto) 6.9 % (0.0-12.0); Neutrophils # (auto) 2.3 10 ^3/uL (1.6-8.6); Neutrophils % (auto) 58.3 % (37.0-80.0); Nucleated Red Blood Cells % 0.2 %; Platelet Count (auto) 183 10^3/uL (140-450); Red Blood Cells 4.61 10^6/uL (4.0-5.20); Red Cell Distribution Width 13.9 % (11.8-14.3); White Blood Cell 3.9 10^3/uL (4.4-10.8)
[2024-12-11 11:59] LABS: Alanine Aminotransferase 14 U/L (7-40); Alkaline Phosphatase 109 U/L (46-116); Anion Gap 8 (5-15); BUN/Creatinine Ratio 18.8 (10.0-20.0); Blood Urea Nitrogen 19 mg/dL (9-23); Carbon Dioxide 26 mmol/L (20-31); Chloride 106 mmol/L (98-107); Potassium 4.3 mmol/L (3.5-5.1); Sodium 140 mmol/L (136-145)
[2024-12-11 12:01] LABS: Albumin 4.6 g/dL (3.2-4.8); Aspartate Aminotransferase 15 U/L (13-40); Bilirubin, Total 0.6 mg/dL (0.2-1.0); HDL Cholesterol 56 mg/dL (40-59); Total Protein 7.8 g/dL (5.7-8.2)
[2024-12-11 12:02] LABS: Calcium 11.8 mg/dL (8.7-10.4); Cholesterol 223 mg/dL (< 200); Glucose 108 mg/dL (74-106); LDL Cholesterol 137 mg/dL (< 100); Triglycerides 199 mg/dL (< 150)
[2024-12-11 12:20] LABS: Uric Acid 8.1 mg/dL (3.1-7.8)
[2024-12-12 12:06] LABS: Cancer Antigen (CA) 125 6.2 U/mL (0.0-38.1)
== END | disposition home or self-care (01) ==
LOC: LAB 10:32
PROVIDERS: ATTEND Family Medicine
DX: I70.0 Atherosclerosis of aorta (principal); I69.354 Hemiplegia and hemiparesis following cerebral infarction affecting left non-dominant side; N18.31 Chronic kidney disease, stage 3a; G45.1 Carotid artery syndrome (hemispheric); E27.8 Other specified disorders of adrenal gland; D05.11 Intraductal carcinoma in situ of right breast; R47.9 Unspecified speech disturbances
CPT/HCPCS: 36415; 80053; 80061; 81001; 82378; 83036; 84443; 84550; 85025; 86301; 86304

== ENCOUNTER 2025-04-24 12:05 | Outpatient (CLI) | payer OTHER, MEDICAID ==
[2025-04-24 12:19] LABS: Urine Bacteria None Seen /hpf (None Seen)
[2025-04-24 12:45] LABS: Basophils # (auto) 0 10 ^3/uL (0-0.2); Basophils % (auto) 0.7 % (0.0-2.0); Eosinophils # (auto) 0.2 10 ^3/uL (0-0.8); Eosinophils % (auto) 4.9 % (0.0-7.0); Hematocrit 41.3 % (36.0-46.0); Hemoglobin 13.7 g/dL (12.2-16.2); Lymphocytes # (auto) 1.3 10 ^3/uL (0.4-5.4); Lymphocytes % (auto) 29.2 % (10.0-50.0); Mean Corpuscular Hemoglobin 29.7 pg (28.0-32.0); Mean Corpuscular Hgb Conc. 33.2 g/dL (32.0-36.0); Mean Corpuscular Volume 89.3 fL (80.0-100.0); Monocytes # (auto) 0.3 10 ^3/uL (0-1.3); Monocytes % (auto) 7.3 % (0.0-12.0); Neutrophils # (auto) 2.6 10 ^3/uL (1.6-8.6); Neutrophils % (auto) 57.9 % (37.0-80.0); Nucleated Red Blood Cells % 0.1 %; Platelet Count (auto) 166 10^3/uL (140-450); Red Blood Cells 4.63 10^6/uL (4.0-5.20); Red Cell Distribution Width 13.9 % (11.8-14.3); White Blood Cell 4.4 10^3/uL (4.4-10.8)
[2025-04-24 13:04] LABS: Urine Blood Negative /uL (Negative); Urine Clarity Clear (Clear); Urine Color Light-Yellow (Yellow); Urine Protein, UAD Negative (Negative); Urine Squamous Epithelial Cell FEW /hpf (<5); Urine Urobilinogen Normal (Negative); Urine WBC 5 /HPF (0-5)
[2025-04-24 13:20] LABS: Alanine Aminotransferase 15 U/L (7-40); Albumin 4.3 g/dL (3.2-4.8); Alkaline Phosphatase 93 U/L (46-116); Anion Gap 6 (5-15); Aspartate Aminotransferase 17 U/L (13-40); BUN/Creatinine Ratio 17.8 (10.0-20.0); Blood Urea Nitrogen 16 mg/dL (9-23); Carbon Dioxide 26 mmol/L (20-31); Glucose 86 mg/dL (74-106); Potassium 4.4 mmol/L (3.5-5.1); Sodium 143 mmol/L (136-145); Total Protein 7.3 g/dL (5.7-8.2); Triglycerides 132 mg/dL (< 150)
[2025-04-24 13:21] LABS: Bilirubin, Total 0.6 mg/dL (0.2-1.0); HDL Cholesterol 59 mg/dL (40-59)
[2025-04-24 13:24] LABS: Calcium 11.1 mg/dL (8.7-10.4); Chloride 111 mmol/L (98-107); Cholesterol 215 mg/dL (< 200); LDL Cholesterol 140 mg/dL (< 100)
[2025-04-24 13:34] LABS: Uric Acid 6.7 mg/dL (3.1-7.8)
== END 2025-04-24 17:00 | disposition home or self-care (01) ==
LOC: LAB 12:05
PROVIDERS: ATTEND Family Medicine
DX: I12.9 Hypertensive chronic kidney disease with stage 1 through stage 4 chronic kidney disease, or unspecified chronic kidney disease (principal); N18.30 Chronic kidney disease, stage 3 unspecified; E78.2 Mixed hyperlipidemia; E55.9 Vitamin D deficiency, unspecified; Z12.11 Encounter for screening for malignant neoplasm of colon; G45.1 Carotid artery syndrome (hemispheric); E03.9 Hypothyroidism, unspecified; M17.10 Unilateral primary osteoarthritis, unspecified knee; J44.9 Chronic obstructive pulmonary disease, unspecified
CPT/HCPCS: 36415; 80053; 80061; 81001; 82043; 83036; 84443; 84550; 85025

== ENCOUNTER → 2025-04-26 | Outpatient (CLI) | payer OTHER, MEDICAID | END | disposition home or self-care (01) | LOC: LAB 13:03 | PROVIDERS: ATTEND Nurse Practitioner Family | DX: Z12.11 Encounter for screening for malignant neoplasm of colon (principal); I12.9 Hypertensive chronic kidney disease with stage 1 through stage 4 chronic kidney disease, or unspecified chronic kidney disease; N18.30 Chronic kidney disease, stage 3 unspecified; J44.9 Chronic obstructive pulmonary disease, unspecified; E78.2 Mixed hyperlipidemia; E03.9 Hypothyroidism, unspecified; E55.9 Vitamin D deficiency, unspecified; M17.10 Unilateral primary osteoarthritis, unspecified knee | CPT/HCPCS: 82270 ==